=== PATIENT | female | born 1930 | race Caucasian/White ===

== ENCOUNTER 2016-08-28 10:34 | Emergency (ER) | payer OTHER, MEDICARE ==
[~2016-08-28] VITALS: Ht 160 cm; Wt 61.2 kg
[~2016-08-28 10:34] MED LIST: ASPI-COR81 M1 PO; COLACE100 MG PO; COMBIVENT RESPIM4 GM INH; ENULOSE 2020 GM/30 M; ENULOSE 2020 GM/30 M PO; FUROSEMIDE20 MG PO; LASIX20 M1 PO; RAMIPRIL2.5 MG PO; SENOKOT S 50 MG1 TAB PO; VERAPAMIL ER240 M1 PO; VERAPAMIL HYDR240 MG; VITAMIN D1000 IU PO; ZOCOR20 M1 PO
--- NOTE | 2016-08-28 10:44 | ED GENERAL ADULT ---
History of Present Illness General Chief Complaint: General Adult Stated Complaint: BIBA FOR DIZZY Source: patient Exam Limitations: no limitations Vital Signs & Intake/Output Vital Signs & Intake/Output Vital Signs Date Time Temp Pulse Resp B/P B/P Pulse O2 O2 Flow FiO2 Mean Ox Delivery Rate 08/28 1034 97.5 82 20 163/74 97 Room Air Allergies Coded Allergies: NO KNOWN ALLERGIES (12/31/14) Reconcile Medications Aspirin (Aspi-Cor) 81 MG CTB 1 TAB PO DAILY HEART HEALTH (Reported) Docusate Sodium (Colace) 100 MG CAPSULE 1 CAP PO DAILY CONSTIPATION (Reported ) Furosemide (Lasix) 20 MG TABLET 20 MG PO DAILY FLUID (Reported) Ipratropium/Albuterol Sulfate (Combivent Respimat Inhal [place]) 4 GM MIST.INHAL 2 PUF INH DAILY SOB (Reported) Lactulose (Enulose 20GM/30ML) 20 GM/30 ML UDC 15 ML PO BID PRN GI (Reported) Ramipril 2.5 MG CAPSULE 1 CAP PO DAILY BLOOD PRESSURE (Reported) Simvastatin (Zocor*) 20 MG TABLET 20 MG PO DAILY CHOLESTEROL (Reported) Verapamil HCl (Verapamil ER) 240 MG TABLET.ER 240 MG PO DAILY BP (Reported) Triage Note: PT BIBA FROM HOME WITH C/C OF DIZZINESS. STATES THAT IT STARTED LAST NIGHT AND IS INTERMITTENT. REPORTS THAT THE DIZZINESS IS WHEN SHE MOVES AROUND. DENIES ANY DIZZINESS AT THIS MOMENT ON ER STRETCHER. DENIES ANY CP/SOB. DENIES ANY ABD PAIN OR N/V CURRENTLY. RA SAT 97%, HR 82. STATES SHE CALLED 911 DUE TO FEAR OF FALLING. Triage Nurses Notes Reviewed? yes Onset: Abrupt Duration: hour(s): Timing: recent history HPI: 08/28/16 11:13 AM 86-year-old female presents to the emergency department status post severe dizziness. The patient states she had an episode of dizziness earlier in the day. Currently in the emergency Department her symptoms have resolved. She does have a past medical history of vertigo. She denies chest pain shortness of breath fever or other complaints. Onset of the symptoms were abrupt, the duration has been just today, the severity significant; as her symptoms required her to come to the emergency department for care. Past History Travel History Traveled to [place] past 21 day No Medical History Any Pertinent Medical History? 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 No Review of Systems Review of Systems Constitutional: Denies: fever. EENTM: Reports: no symptoms. Respiratory: Denies: short of breath. Cardiovascular: Denies: chest pain. GI: Denies: abdominal pain. Genitourinary: Reports: no symptoms. Musculoskeletal: Reports: no symptoms. Skin: Reports: no symptoms. Neurological/Psychological: Reports: other (dizziness). Denies: headache. Hematologic/Endocrine: Reports: no symptoms. Physical Exam Physical Exam General Appearance: well developed/nourished, alert, awake, anxious, mild distress Head: atraumatic, normal appearance Eyes: Bilateral: normal appearance, PERRL, EOMI. Ears, Nose, Throat: normal pharynx, normal ENT inspection Neck: normal inspection, supple, full range of motion Respiratory: normal breath sounds, chest non-tender Cardiovascular: irregularly irregular Peripheral Pulses: 4+ radial (R), 4+ radial (L) Back: decreased range of motion Extremities: no edema Neurologic/Psych: no motor/sensory deficits, awake, alert, confused, but o x3 with help Skin: intact, normal color, warm/dry Core Measures ACS in differential dx? No CVA/TIA Diagnosis: No Severe Sepsis Present: No Septic Shock Present: No Progress Differential Diagnoses I considered the following diagnoses in my evaluation of the patient: [Vertigo, labyrinthitis, Mnire's disease, vestibular neuronitis, benign positional vertigo, adverse drug reaction, cerebellar infarct] Plan of Care: Orders Procedure Date/time Status TROPONIN LEVEL 08/28 111 Complete COMPREHENSIVE METABOLIC PANEL 08/28 111 Complete CBC WITHOUT DIFFERENTIAL 08/28 1118 Complete EKG 08/28 111 Active Laboratory Tests 05/26/17 1137: Anion Gap 7, Estimated GFR > 60, BUN/Creatinine Ratio 35.0 H, Glucose 87, Calcium 9.0, Total Bilirubin 0.5, AST 21, ALT 25, Alkaline Phosphatase 65, Troponin I < 0.01, Total Protein 6.1 L, Albumin 3.6, Globulin 2.5, Albumin/ Globulin Ratio 1.4, CBC w Diff NO MAN DIFF REQ, RBC 4.33, MCV 87.8, MCH 28.8, RDW 14.5, MPV 8.7, Gran % 73.1, Lymphocytes % 14.9 L, Monocytes % 7.6, Eosinophils % 4.0, Basophils % 0.4, Absolute Granulocytes 6.2, Absolute Lymphocytes 1.3, Absolute Monocytes 0.6, Absolute Eosinophils 0.3, Absolute Basophils 0, PUBS MCHC 32.8 L Initial ED EKG: pending Departure Departure Disposition: STILL A PATIENT Condition: Stable Clinical Impression Primary Impression: Vertigo Referrals: HARSHAL JIANG MD (PCP/Family) Departure Forms: Customer Survey General Discharge Information Comments \ 08/28/16 12:42 EKG, CAT scan of the head and labs are essentially unremarkable. The patient is currently asymptomatic in the emergency department she is being discharged back to the facility. Critical Care Note Critical Care Note Critical Care Time: non-applicable
--- NOTE | 2016-08-28 11:41 | CT SCAN REPORT ---
EXAMINATION: CT HEAD WITHOUT CONTRAST CLINICAL INFORMATION: Vertigo COMPARISON: 08/10/2015 also performed for vertigo. TECHNIQUE: Contiguous axial imaging was performed from the skull base to vertex without intravenous administration of contrast. DLP: 621 mGy-cm FINDINGS: There is no evidence of acute intracranial hemorrhage or territorial infarction. No abnormal mass effect or midline shift is seen. Jay to white matter differentiation is well preserved. No extra-axial fluid collections are identified. Fairly extensive volume loss likely age-related is identified. There is extensive periventricular decrease in white matter attenuation throughout the bilateral cerebral hemispheres bilaterally largely unchanged compared with the previous exam consistent with extensive small vessel ischemic changes. There are atherosclerotic calcifications of the distal carotids and vertebral arteries, right vertebral artery remains mildly ectatic. The osseous structures and soft tissues are normal. The mastoid air cells and visualized portions of the paranasal sinuses are well aerated. IMPRESSION: Volume loss and extensive small vessel ischemic changes appears largely unchanged.
[2016-08-28 11:54] LABS: ABSOLUTE BASOPHIL COUNT 0 /CUMM (0.0-0.2); ABSOLUTE EOSINOPHIL COUNT 0.3 /CUMM (0.0-0.7); ABSOLUTE GRANULOCYTE CT 6.2 /CUMM (1.4-6.5); ABSOLUTE LYMPH COUNT 1.3 /CUMM (1.2-3.4); ABSOLUTE MONOCYTE COUNT 0.6 /CUMM (0.10-0.60); BASOPHIL % 0.4 % (0.0-2.0); GRANULOCYTE % 73.1 % (42.2-75.2); MEAN CORPUSCULAR HGB 28.8 PG (27.0-31.0); MEAN CORPUSCULAR HGB CONC 32.8 G/DL (33.0-37.0); MEAN CORPUSCULAR VOLUME 87.8 FL (81.0-99.0); MEAN PLATELET VOLUME 8.7 FL (7.4-10.4); PLATELET COUNT 208 /CUMM (130-400); RBC DISTRIBUTION WIDTH 14.5 % (11.5-14.5); RED BLOOD CELL CT 4.33 /CUMM (4.20-5.40); WHITE BLOOD CELL COUNT 8.5 /CUMM (4.8-10.8)
[2016-08-28 15:51] VITALS: BP 158/85
== END 2016-08-28 15:51 ==
LOC: ERH 10:34
PROVIDERS: Emergency Medicine
DX: R42 Dizziness and giddiness (principal)
CPT/HCPCS: 93005; 93010

== ENCOUNTER 2017-04-05 10:46 | Emergency (ER) | payer OTHER, MEDICARE ==
[~2017-04-05] VITALS: Ht 162.6 cm; Wt 59.0 kg
--- NOTE | 2017-04-05 10:55 | ED GENERAL ADULT ---
History of Present Illness General Chief Complaint: General Adult Stated Complaint: WEAKNESS Source: patient, old records, EMS Exam Limitations: no limitations Vital Signs & Intake/Output Vital Signs & Intake/Output Vital Signs Date Time Temp Pulse Resp B/P B/P Pulse O2 O2 Flow FiO2 Mean Ox Delivery Rate 04/05 1428 97.7 87 18 184/77 100 Room Air 04/05 1054 98.0 79 20 150/88 100 Room Air Allergies Coded Allergies: NO KNOWN ALLERGIES (12/31/14) Reconcile Medications Aspirin (Aspi-Cor) 81 MG CTB 1 TAB PO DAILY HEART HEALTH (Reported) Docusate Sodium (Colace) 100 MG CAPSULE 1 CAP PO DAILY CONSTIPATION (Reported ) Furosemide (Lasix) 20 MG TABLET 20 MG PO DAILY FLUID (Reported) Ipratropium/Albuterol Sulfate (Combivent Respimat Inhal [place]) 4 GM MIST.INHAL 2 PUF INH DAILY SOB (Reported) Lactulose (Enulose 20GM/30ML) 20 GM/30 ML UDC 15 ML PO BID PRN GI (Reported) Ramipril 2.5 MG CAPSULE 1 CAP PO DAILY BLOOD PRESSURE (Reported) Simvastatin (Zocor*) 20 MG TABLET 20 MG PO DAILY CHOLESTEROL (Reported) Verapamil HCl (Verapamil ER) 240 MG TABLET.ER 240 MG PO DAILY BP (Reported) Triage Note: PT C/O FEELING WEAK AND DIZZY SINCE LAST NIGHT. PT STATES SHE WAS UNABLE TO TAKE HER MEDICATION YESTERDAY D/T WEAKNESS. NO FACIAL DROOP NOTED, HAND GRASPS EQUEAL AND STRONG. PT DENIES CP/SOB DR GARCIA AT BEDSIDE FOR EVALUATION Triage Nurses Notes Reviewed? yes HPI: Patient states that last night she was laying in bed when she felt lightheaded. Patient states that it was dizziness but denies any room spinning dizziness and she didn't get nauseous. Patient felt that she did not want to get up from bed. For fear of falling because of the lightheadedness. Patient stated bed and this morning she was feeling better but decided to call 911 to come in for evaluation. Patient denies any chest pain or palpitations. There is no shortness of breath. There is no anorexia. There is no nausea, vomiting, constipation or diarrhea. There is no dysuria. Past History Travel History Traveled to [place] past 21 day No Medical History Any Pertinent Medical History? 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 No Review of Systems Review of Systems Constitutional: Reports: see HPI, weakness. EENTM: Reports: no symptoms. Respiratory: Reports: no symptoms. Cardiovascular: Reports: no symptoms. GI: Reports: no symptoms. Genitourinary: Reports: no symptoms. Musculoskeletal: Reports: no symptoms. Skin: Reports: no symptoms. Neurological/Psychological: Reports: no symptoms. Hematologic/Endocrine: Reports: no symptoms. Immunologic/Allergic: Reports: no symptoms. All Other Systems: Reviewed and Negative Physical Exam Physical Exam General Appearance: well developed/nourished, alert, awake, mild distress Head: atraumatic, normal appearance Eyes: Bilateral: PERRL, EOMI. Ears, Nose, Throat: normal pharynx, normal ENT inspection, hearing grossly normal Neck: normal inspection, supple, full range of motion Respiratory: normal breath sounds, chest non-tender, no respiratory distress, lungs clear Cardiovascular: regular rate/rhythm, normal peripheral pulses Gastrointestinal: normal bowel sounds, soft, non-tender, no organomegaly Back: normal inspection, normal range of motion Extremities: normal inspection, normal capillary refill, normal range of motion, no edema Neurologic/Psych: no motor/sensory deficits, awake, alert, oriented x 3, normal mood/affect Skin: intact, normal color, warm/dry Lymphatic: no anterior cervical benita Core Measures ACS in differential dx? No CVA/TIA Diagnosis: No Sepsis Present: No Sepsis Focused Exam Completed? No Progress Differential Diagnoses I considered the following diagnoses in my evaluation of the patient: [AMI, ELECTROLYTE ABNORMALITY, UTI, ORTHOSTASIS] Plan of Care: Orders Procedure Date/time Status Heart Healthy Diet 04/05 D Active Add-on Test (ER Only) 04/05 1318 Active CULTURE,URINE 04/05 1255 Active EKG 04/05 1055 Active MISTAKE 04/05 1054 Active Telemetry/Defence Force Senior Officer 04/05 1054 Active URINALYSIS 04/05 1054 Complete TROPONIN LEVEL 04/05 1054 Complete COMPREHENSIVE METABOLIC PANEL 04/05 1054 Complete CBC WITHOUT DIFFERENTIAL 04/05 1054 Complete Laboratory Tests 04/05/17 1255: Urinalysis LIGHT H, Urine Color YEL, Urine Clarity HAZY H, Urine pH 7.0, Ur Specific [place] 1.015, Urine Protein NEG, Urine Ketones NEG, Urine Nitrite NEG, Urine Bilirubin NEG, Urine Urobilinogen 0.2, Ur Leukocyte Esterase TRACE H, Ur Microscopic SEDIMENT EXAMINED, Urine RBC RARE, Urine WBC 5-10 H, Ur Epithelial Cells FEW, Urine Hemoglobin NEG, Urine Glucose NEG 04/05/17 1109: Anion Gap 6, Estimated GFR > 60, BUN/Creatinine Ratio 32.9 H, Glucose 92, Calcium 10.2, Total Bilirubin 0.5, AST 24, ALT 31, Alkaline Phosphatase 82, Troponin I < 0.01, Total Protein 6.8, Albumin 4.2, Globulin 2.6, Albumin/ Globulin Ratio 1.6, CBC w Diff NO MAN DIFF REQ, RBC 4.55, MCV 89.5, MCH 29.5, RDW 14.4, MPV 8.6, Gran % 64.6, Lymphocytes % 21.3, Monocytes % 8.8, Eosinophils % 4.4, Basophils % 0.9, Absolute Granulocytes 4.1, Absolute Lymphocytes 1.3, Absolute Monocytes 0.6, Absolute Eosinophils 0.3, Absolute Basophils 0.1, PUBS MCHC 33.0 Microbiology 04/05 1255 URINE ROUT: Urine Culture - RECD Initial ED EKG: NSR, nonspecific ST T wave chg Prior EKG: unchanged Comments: PT IS FEELING MUCH BETTER AFTER IV FLUIDS. Patient ate lunch and then ambulated in the emergency department without difficulty. Patient is stable for discharge. Departure Departure Disposition: HOME OR SELF CARE Condition: Stable Clinical Impression Primary Impression: Dehydration Referrals: Domitila MATIAS,Hector (PCP/Family) Additional Instructions: MAKE SURE YOU DRINK PLENTY OF FLUIDS RETURN FOR ANY CONCERNS Departure Forms: Customer Survey General Discharge Information Critical Care Note Critical Care Note Critical Care Time: non-applicable
[2017-04-05 11:25] LABS: ABSOLUTE BASOPHIL COUNT 0.1 /CUMM (0.0-0.2); ABSOLUTE EOSINOPHIL COUNT 0.3 /CUMM (0.0-0.7); ABSOLUTE GRANULOCYTE CT 4.1 /CUMM (1.4-6.5); ABSOLUTE LYMPH COUNT 1.3 /CUMM (1.2-3.4); ABSOLUTE MONOCYTE COUNT 0.6 /CUMM (0.10-0.60); BASOPHIL % 0.9 % (0.0-2.0); EOSINOPHIL % 4.4 % (0-5); GRANULOCYTE % 64.6 % (42.2-75.2); HEMATOCRIT 40.7 % (37-47); MEAN CORPUSCULAR HGB 29.5 PG (27.0-31.0); MEAN CORPUSCULAR VOLUME 89.5 FL (81.0-99.0); MEAN PLATELET VOLUME 8.6 FL (7.4-10.4); PLATELET COUNT 233 /CUMM (130-400); RBC DISTRIBUTION WIDTH 14.4 % (11.5-14.5); RED BLOOD CELL CT 4.55 /CUMM (4.20-5.40); WHITE BLOOD CELL COUNT 6.3 /CUMM (4.8-10.8)
[2017-04-05 14:28] VITALS: BP 184/77
== END 2017-04-05 14:40 ==
LOC: ERH 10:46
PROVIDERS: Emergency Medicine
DX: E86.0 Dehydration (principal)
CPT/HCPCS: 81001; 87086; 93005; 93010; 96360